=== PATIENT | female | born 1965 | race Caucasian/White ===

== ENCOUNTER 2017-04-09 10:47 | Emergency (ER) | payer MEDICAID, OTHER ==
[~2017-04-09] VITALS: Ht 160 cm; Wt 55.3 kg
[~2017-04-09 10:47] MED LIST: ALBU0.0952 INH; ASCO-386 PO; ATEN25TA2 PO; CARB1TAB17 PO; ESTR1TAB13 PO; FERR-193 PO; FLUT1AER3 INH; FURO-572 PO; KEP500 PO; MONT10TA35 PO; SPIR100T PO; [UNRECOGNIZED DRUG - CODE] PO
[2017-04-09 11:09] VITALS: BP 114/81
--- NOTE | 2017-04-09 12:49 | NUR ---
Patient ambulated to bed 5 with family. RN evaluating patient at bedside.
--- NOTE | 2017-04-09 12:50 | NUR ---
PATIENT PRESENTS TO ED WITH C/O FALL X1 DAY. UNKNOWN LOC. LEFT ANKLE, RIGHT KNEE, MIDDLE-LOWER BACK PAIN, NECK PAIN. DENIES N/V/D; SKIN IS PINK/WARM/DRY; AAOX4 WITH EVEN AND STEADY GAIT; LUNGS CLEAR BL; HR EVEN AND REGULAR; PT DENIES ANY FEVER, CP, SOB, OR COUGH AT THIS TIME; PATIENT STATES PAIN OF 10/10 AT THIS TIME; VSS; PATIENT POSITIONED FOR COMFORT; HOB ELEVATED; BEDRAILS UP X2; BED DOWN. ER MD MADE AWARE OF PT STATUS.
[2017-04-09] MEDS ORDERED: MORPHINE SULFATE 4 MG/ML SYR IM ONE (12:55)
[2017-04-09 13:30] VITALS: BP 126/81
--- NOTE | 2017-04-09 13:30 | NUR ---
Patient discharged with v/s stable. Written and verbal after care instructions given and explained. Patient verbalized understanding. Ambulatory with steady gait. All questions addressed prior to discharge. Advised to follow up with PMD.
== END 2017-04-09 13:30 | disposition home or self-care (01) ==
LOC: MED 10:47
DX: M54.2 Cervicalgia (principal); M25.572 Pain in left ankle and joints of left foot; M25.561 Pain in right knee; J45.909 Unspecified asthma, uncomplicated; J44.9 Chronic obstructive pulmonary disease, unspecified; F17.210 Nicotine dependence, cigarettes, uncomplicated; I50.9 Heart failure, unspecified; I63.9 Cerebral infarction, unspecified; E11.9 Type 2 diabetes mellitus without complications; K21.9 Gastro-esophageal reflux disease without esophagitis; I10 Essential (primary) hypertension; Z88.2 Allergy status to sulfonamides; Z85.3 Personal history of malignant neoplasm of breast; Z90.89 Acquired absence of other organs; Z90.710 Acquired absence of both cervix and uterus
CPT/HCPCS: 72050; 72110; 73562; 73610; 96372; 99284; J2270